=== PATIENT | female | born 1980 | race African-American/Black ===

== ENCOUNTER 2018-07-12 13:36 | Inpatient (IN) | payer OTHER ==
[2018-07-12 13:53] VITALS: BMI 23.4
[2018-07-12] MEDS ORDERED: Sodium Chloride 0.9% 1,000 ML IV ONE (14:13)
[2018-07-12 14:29] LABS: BASO % 0.2 % (0.0-2.0); EOS % 0.1 % (0.0-4.0); HEMOGLOBIN 9.4 g/dL (11.0-16.0); LYMPH # 1.2 K/uL (1.0-4.3); LYMPH % 9.6 % (20.0-40.0); MEAN CELL VOLUME 76.6 fL (81.0-99.0); MEAN CORPUSCULAR HGB CONC 32.6 g/dL (33.0-37.0); MEAN PLATELET VOLUME 7.5 fL (7.2-11.7); MONO # 0.7 K/uL (0.0-0.8); MONO % 5.5 % (0.0-10.0); NEUT # 10.6 K/uL (1.8-7.0); NEUT % 84.6 % (50.0-75.0); PLATELET COUNT 375 K/uL (130-400); RBC 3.77 Mil/uL (3.80-5.20); RED CELL DISTRIBUTION WIDTH 13.5 % (11.5-14.5); WHITE BLOOD COUNT 12.5 K/uL (4.8-10.8)
[2018-07-12 14:40] LABS: INR 1.2; PROTHROMBIN TIME 12.8 SECONDS (9.7-12.2)
[2018-07-12 14:46] LABS: ALB/GLOB RATIO 1.6 (1.0-2.1); ALBUMIN 4.4 g/dL (3.5-5.0); ALT/SGPT 11 U/L (9-52); AST/SGOT 20 U/L (14-36); BLOOD UREA NITROGEN 8 mg/dL (7-17); CALCIUM 9.2 mg/dl (8.6-10.4); GFR NON-AFRICAN AMERICAN > 60
--- NOTE | 2018-07-12 15:25 | CP.PCM.HP ---
<Francisco J Moses - Last Filed: 07/12/18 16:23> History of Present Illness - History of Present Illness History of Present Illness: Francisco J Moses, PGY-1 History and Physical for OBGYN Service Patient is a 37 female with past medical history of PCOS and DM at 8 weeks gestation who presents to the emergency department with complaints of lower left abdominal pain and right shoulder pain. She states that the pain began last night around 1 am and has been intermittent. She describes the lower left abdominal pain as throbbing/pressure like and the shoulder pain as sharp/stabbing in nature. She rates both currently to be at a 7-8/10. She indicates that she has experienced vaginal bleeding last night and this morning, approximately amounting to a handful of blood. She states that she went to her private gyncelogists Dr. Wheeler this morning where she states an ultrasound was done. She states that Dr. Wheeler indicated that there is no gestational sac in the uterus and that there is blood accumulation in the abdomen. Patient has been on Clomiphene for 8 years due to an inability to conceive, which patient states she stopped in 01/19. Patient endorses dizziness, dysuria, pain upon defecation, and mild shortness of breath with pain. Patient denies headache, blurry vision, chest pain, nausea, vomiting, leg pain, leg swelling. A full 12 point ROS was unremarkable unless otherwise stated above. Social Hx: Denies tabacco, alcohol, and illicit drug use. Medical Hx: PCOS (diagnosed in [place]), DM Allergies: NKA Surgical Hx: Denies Hosptilization: None recent Family Hx: Denies hx of Ca, ectopics Medicaitons: Metformin 500 mg PO BID Present on Admission - Present on Admission Any Indicators Present on Admission: No History of DVT/PE: No Urinary Catheter: No Decubitus Ulcer Present: No History Surgical Site Infection Following: None Review of Systems - Review of Systems Review of Systems: 12 point ROS completed and negative except as described in HPI. Past Patient History - Past Social History Smoking Status: Never Smoked - ENDOCRINE/METABOLIC Hx Diabetes Mellitus Type 2: Yes - GENITOURINARY/GYNECOLOGICAL Other/Comment: PCOS as per patient - PSYCHIATRIC Hx Substance Use: No - SURGICAL HISTORY Hx Surgeries: No - ANESTHESIA Hx Anesthesia: No Meds Allergies/Adverse Reactions: Allergies Allergy/AdvReac Type Severity Reaction Status Date / Time No Known Allergies Allergy Verified 07/12/18 13:53 Physical Exam - Constitutional Appears: Well, No Acute Distress - Head Exam Head Exam: ATRAUMATIC, NORMAL INSPECTION, NORMOCEPHALIC - Eye Exam Eye Exam: EOMI, Normal appearance. absent: Scleral icterus Pupil Exam: PERRL - ENT Exam ENT Exam: Mucous Membranes Moist - Neck Exam Neck exam: Positive for: Full Rom - Respiratory Exam Respiratory Exam: Decreased Breath Sounds, Clear to Auscultation Bilateral, NORMAL BREATHING PATTERN. absent: Accessory Muscle Use, Rales, Rhonchi, Wheezes - Cardiovascular Exam Cardiovascular Exam: Tachycardia, +S1, +S2 - GI/Abdominal Exam GI & Abdominal Exam: Diminished Bowel Sounds, Guarding, Soft, Tenderness (LLQ). absent: Distended, Firm, Pulsatile Mass, Rebound, Rigid - Extremities Exam Extremities exam: Negative for: pedal edema, tenderness Additional comments: R shoulder pain worse with movement - Back Exam Back exam: absent: CVA tenderness (L), CVA tenderness (R) - Neurological Exam Neurological exam: Alert, Oriented x3 - Psychiatric Exam Psychiatric exam: Anxious - Skin Skin Exam: Dry, Intact, Pallor (Noted on palms, no scleral icterus) Results - Vital Signs Recent Vital Signs: Last Vital Signs Temp 97.8 F 07/12/18 13:54 Pulse 139 H 07/12/18 13:54 Resp 20 07/12/18 13:54 BP 111/72 07/12/18 13:54 Pulse Ox 100 07/12/18 13:54 - Labs Result Diagrams: 07/12/18 14:21 07/12/18 14:21 Labs: Laboratory Results - last 24 hr 07/12/18 07/12/18 07/12/18 14:21 14:21 14:21 WBC 12.5 H RBC 3.77 L Hgb 9.4 L Hct 28.9 L MCV 76.6 L MCH 25.0 L MCHC 32.6 L RDW 13.5 Plt Count 375 MPV 7.5 Neut % (Auto) 84.6 H Lymph % (Auto) 9.6 L Meagher % (Auto) 5.5 Eos % (Auto) 0.1 Baso % (Auto) 0.2 Neut # (Auto) 10.6 H Lymph # (Auto) 1.2 Meagher # (Auto) 0.7 Eos # (Auto) 0.0 Baso # (Auto) 0.0 PT 12.8 H INR 1.2 APTT 28 Sodium 134 Potassium 4.4 Chloride 102 Carbon Dioxide 22 Anion Gap 15 BUN 8 Creatinine 0.4 L Est GFR ( Amer) > 60 Est GFR (Non-Af Amer) > 60 Random Glucose 163 H Calcium 9.2 Total Bilirubin 0.4 AST 20 ALT 11 Alkaline Phosphatase 52 Total Protein 7.1 Albumin 4.4 Globulin 2.8 Albumin/Globulin Ratio 1.6 Beta HCG, Quant 4196.90 Assessment & Plan - Assessment and Plan (Free Text) Assessment: 37 F with PMHx of DM and PCOS who presents with left lower abdominal pain, likely secondary to a ruptured ectopic . B-HCG was 4197, and bedside U/S performed at private OBGYN's office showed blood in the abdomen. - Hemodynamically stable, no obvious sign of active blood loss currently - EKG shows sinus tachycardia - Hgb 9.4 - F/u results of Transvaginal U/S - IVF - Type and Screen, Type and Cross - Possible surgical laparoscopy - Patient seen and discussed with Dr. Summers, per Dr. Wheeler's request Francisco J Moses, PGY-1 <Lexi Summers - Last Filed: 07/12/18 16:29> Results - Vital Signs Recent Vital Signs: Last Vital Signs Temp 98.6 F 07/12/18 16:17 Pulse 122 H 07/12/18 16:17 Resp 19 07/12/18 16:17 BP 112/70 07/12/18 16:17 Pulse Ox 100 07/12/18 16:17 - Labs Result Diagrams: 07/12/18 14:21 07/12/18 14:21 Labs: Laboratory Results - last 24 hr 07/12/18 07/12/18 07/12/18 14:21 14:21 14:21 WBC 12.5 H RBC 3.77 L Hgb 9.4 L Hct 28.9 L MCV 76.6 L MCH 25.0 L MCHC 32.6 L RDW 13.5 Plt Count 375 MPV 7.5 Neut % (Auto) 84.6 H Lymph % (Auto) 9.6 L Meagher % (Auto) 5.5 Eos % (Auto) 0.1 Baso % (Auto) 0.2 Neut # (Auto) 10.6 H Lymph # (Auto) 1.2 Meagher # (Auto) 0.7 Eos # (Auto) 0.0 Baso # (Auto) 0.0 Neutrophils % (Manual) 88 H Lymphocytes % (Manual) 9 L Monocytes % (Manual) 3 Platelet Estimate Normal Polychromasia Slight Hypochromasia (manual) Slight Microcytosis (manual) Slight PT 12.8 H INR 1.2 APTT 28 Sodium 134 Potassium 4.4 Chloride 102 Carbon Dioxide 22 Anion Gap 15 BUN 8 Creatinine 0.4 L Est GFR ( Amer) > 60 Est GFR (Non-Af Amer) > 60 Random Glucose 163 H Calcium 9.2 Total Bilirubin 0.4 AST 20 ALT 11 Alkaline Phosphatase 52 Total Protein 7.1 Albumin 4.4 Globulin 2.8 Albumin/Globulin Ratio 1.6 Beta HCG, Quant 4196.90 Blood Type Antibody Screen 07/12/18 14:21 WBC RBC Hgb Hct MCV MCH MCHC RDW Plt Count MPV Neut % (Auto) Lymph % (Auto) Meagher % (Auto) Eos % (Auto) Baso % (Auto) Neut # (Auto) Lymph # (Auto) Meagher # (Auto) Eos # (Auto) Baso # (Auto) Neutrophils % (Manual) Lymphocytes % (Manual) Monocytes % (Manual) Platelet Estimate Polychromasia Hypochromasia (manual) Microcytosis (manual) PT INR APTT Sodium Potassium Chloride Carbon Dioxide Anion Gap BUN Creatinine Est GFR ( Amer) Est GFR (Non-Af Amer) Random Glucose Calcium Total Bilirubin AST ALT Alkaline Phosphatase Total Protein Albumin Globulin Albumin/Globulin Ratio Beta HCG, Quant Blood Type A POSITIVE Antibody Screen Negative Assessment & Plan - Assessment and Plan (Free Text) Assessment: Agreed with Dr. Moses A/P after case reviewed with him TA and TV US reported as empty uterus, Hemoperitoneum and most likely c/w a left Ruptured ectopic Low H&H from acute blood loss/ Asymptomatic Blood type A+ Type and Cross for 2 Units was ordered and on hold Dr. Wheeler aware of above findings and request to bring patient to OR for Surgery Pt amd aware of dings and plan of care and verbalized understanding Will transfer to OR
[2018-07-12 15:36] LABS: LYMPHOCYTE 9 % (20-40); MONOCYTE 3 % (0-10); NEUTROPHIL 88 % (50-75); PLATELET ESTIMATE NORMAL (NORMAL); TOTAL CELLS COUNTED 100
[2018-07-12 15:37] LABS: HYPOCHROMIC SLIGHT; MICROCYTOSIS SLIGHT; POLYCHROMIC SLIGHT
--- NOTE | 2018-07-12 16:09 | US ---
Date of service: 07/12/2018 HISTORY: vaginal bleeding - r/o ectopic COMPARISON: None available. TECHNIQUE: Transabdominal and transvaginal pelvic ultrasound was performed. FINDINGS: UTERUS: Measures 10.8 x 6.2 x 6.9 cm. Anteverted enlarged. No fibroid or other mass lesion seen. ENDOMETRIUM: Measures 2.5 mm in diameter. There is small amount of fluid in the endometrial canal. CERVIX: No cervical abnormality identified. RIGHT OVARY: Measures 2.5 x 1.5 x 2.0 cm. No solid mass. Normal flow. LEFT OVARY: Measures 4.3 x 3.1 x 3.9 cm. There is a 5.9 x 5.7 x 6.6 cm heterogeneous mixed echogenicity mass in the left adnexa. There is no significant increased peripheral vascularity normal flow. There is a 2.7 x 2.5 x 2.1 cm simple cyst. FREE FLUID: There is large amount of hemorrhagic fluid in the pelvis. OTHER FINDINGS: None. IMPRESSION: 1. No evidence of intrauterine gestational sac. 2. Approximately 5.9 x 5.7 x 6.6 cm heterogeneous mass in the left adnexa and large amount of hemorrhagic fluid in the pelvis concerning for a joint ectopic . Critical findings were discussed with Dr. Matthew Chadwick in the ER on 07/12/2018 at 4:04 p.m.
[2018-07-12] MEDS ORDERED: Midazolam 2 MG/2 ML VIAL ONE (16:36)
[2018-07-12] MEDS ORDERED: Propofol 10 mg/ml Inj (20 ML) ONE (16:37)
[2018-07-12] MEDS ORDERED: Rocuronium 10 mg/ml (5 ml) ONE (16:41)
[2018-07-12] MEDS ORDERED: ceFOXitin IV 1 gm/100 ml in NS 2 GM/200 ML BAG ONE (17:03)
[2018-07-12] MEDS ORDERED: Lactated Ringer's 1,000 ML IV SCH (18:00)
[2018-07-12] MEDS: HYDROmorphone 0.5 mg/0.5 ml ISec IVP PRN ×3 (18:04→19:31)
--- NOTE | 2018-07-12 18:05 | PCM.SURG1 ---
Surgeon's Initial Post Op Note - Surgeon's Notes Surgeon: Dr. Halley Wheeler Wire Wheeler: Dr. Karthikeyan Lebron Type of Anesthesia: General IV Anesthesia Administered By: Dr. Rizzo Pre-Operative Diagnosis: Left Rupture Ectopic with large Hemoperitoneum Operative Findings: about 1000 mls of Hemoperitoneum. Left tubal ectopic ruptured Post-Operative Diagnosis: Same as preop Diagnosis. Small Left simple ovarian cyst Operation Performed: Exploratoty Laparotomy. Left Partial Salpingectomy. Evacuation of Large Hemoperitoneum Specimen/Specimens Removed: 1000 mls of blood clots from abdomen. Partial ruptured left Fallopian Tube Estimated Blood Loss: EBL {In ML}: 100 (1000 mls of peritoneal clotted blood ) Blood Products Given: N/A (I was requested to assist in closing the abdomen at the end of the case when Dr. Wheeler was called for another emergency), PRBC Drains Used: No Drains Post-Op Condition: Good Date of Surgery/Procedure: 07/12/18 Time of Surgery/Procedure: 16:45
--- NOTE | 2018-07-12 19:56 | C.PDOC ---
History Of Present Illness 37-year-old female presents to the ED, sent in by Dr. Wheeler for left pelvic pain, rule out ectopic . Patient reports vaginal bleeding since last night, associated with abdominal pain. Also associated with nausea but no vomiting. Pain is localized to the left lower quadrant. No fevers, chills, or changes in bowel movements. Time Seen by Provider: 07/12/18 13:58 Chief Complaint (Nursing): Abdominal Pain History Per: Patient History/Exam Limitations: no limitations Onset/Duration Of Symptoms: Days (x 1) Current Symptoms Are (Timing): Still Present Associated Symptoms: Nausea Abnormal Vaginal Bleeding: Yes : 1 Para: 0 Past Medical History Reviewed: Historical Data, Nursing Documentation, Vital Signs Vital Signs: Last Vital Signs Temp 97.8 F 07/12/18 17:35 Pulse 101 H 07/12/18 19:30 Resp 16 07/12/18 19:30 BP 113/57 L 07/12/18 19:30 Pulse Ox 100 07/12/18 19:30 Surgical History: No Surg Hx Family History: States: Unknown Family Hx - Social History Hx Alcohol Use: No Hx Substance Use: No - Immunization History Hx Tetanus Toxoid Vaccination: No Hx Influenza Vaccination: No Hx Pneumococcal Vaccination: No Review Of Systems Except As Marked, All Systems Reviewed And Found Negative. Constitutional: Negative for: Fever, Chills Cardiovascular: Negative for: Palpitations Respiratory: Negative for: Shortness of Breath Gastrointestinal: Positive for: Nausea, Abdominal Pain. Negative for: Vomiting, Diarrhea, Hematochezia Genitourinary: Positive for: Vaginal Bleeding, Pelvic Pain. Negative for: Dysuria, Frequency Skin: Negative for: Rash Neurological: Negative for: Dizziness Physical Exam - Physical Exam Appears: Non-toxic, In Acute Distress (In mild to moderate distress) Skin: Warm, Dry Head: Atraumatic, Normacephalic Eye(s): bilateral: Normal Inspection, PERRL, EOMI Neck: Normal ROM Chest: Symmetrical Cardiovascular: Rhythm Regular, No Murmur Respiratory: Normal Breath Sounds, No Rales, No Rhonchi, No Wheezing Gastrointestinal/Abdominal: Soft, Tenderness (Suprapubic and LLQ tenderness), No Guarding, No Rebound Back: No CVA Tenderness Extremity: Bilateral: Atraumatic, Normal ROM Pulses: Left Dorsalis Pedis: Normal, Right Dorsalis Pedis: Normal Neurological/Psych: Oriented x3 Gait: Steady ED Course And Treatment - Laboratory Results Result Diagrams: 07/12/18 22:35 07/12/18 14:21 Lab Results: PT 12.8 SECONDS (9.7-12.2) H 07/12/18 14:21 INR 1.2 07/12/18 14:21 APTT 28 SECONDS (21-34) 07/12/18 14:21 Total Bilirubin 0.4 mg/dL (0.2-1.3) 07/12/18 14:21 AST 20 U/L (14-36) 07/12/18 14:21 ALT 11 U/L (9-52) 07/12/18 14:21 Alkaline Phosphatase 52 U/L (38-126) 07/12/18 14:21 Total Protein 7.1 g/dL (6.3-8.3) 07/12/18 14:21 Albumin 4.4 g/dL (3.5-5.0) 07/12/18 14:21 Globulin 2.8 gm/dL (2.2-3.9) 07/12/18 14:21 Albumin/Globulin Ratio 1.6 (1.0-2.1) 07/12/18 14:21 Beta HCG, Quant 4196.90 mIU/ML 07/12/18 14:21 O2 Sat by Pulse Oximetry: 100 (RA) Pulse Ox Interpretation: Normal Medical Decision Making Medical Decision Making: Initial Plan: - Blood type/screen - CMP - Beta-HCG quant - CBC - PTT/PT - IV fluids - Pending Pelvic/Transvag US Spoke with Dr. Summers, reviewed labs and US which show ruptured ectopic. Patient to be taken to the OR from the ED. Disposition Counseled Patient/Family Regarding: Studies Performed, Diagnosis - Disposition Disposition: HOSPITALIZED Disposition Time: 14:08 Condition: SERIOUS - POA Present On Arrival: None - Clinical Impression Clinical Impression: Ruptured ectopic - Scribe Statement The provider has reviewed the documentation as recorded by the [place] Provider Attestation: All medical record entries made by the Jennyferibe were at my direction and personally dictated by me. I have reviewed the chart and agree that the record accurately reflects my personal performance of the history, physical exam, medical decision making, and the department course for this patient. I have also personally directed, reviewed, and agree with the discharge instructions and disposition.
[2018-07-12] MEDS: Oxycodone/Acetaminophen 5/325 mg Tab PO PRN (22:12)
[2018-07-12 22:40] LABS: BASO % 0.4 % (0.0-2.0); EOS % 0.1 % (0.0-4.0); LYMPH # 1.6 K/uL (1.0-4.3); LYMPH % 22.5 % (20.0-40.0); MEAN CORPUSCULAR HEMOGLOBIN 26.6 pg (27.0-31.0); MEAN CORPUSCULAR HGB CONC 33.6 g/dL (33.0-37.0); MEAN PLATELET VOLUME 7.4 fL (7.2-11.7); MONO # 0.6 K/uL (0.0-0.8); MONO % 8.1 % (0.0-10.0); NEUT # 4.8 K/uL (1.8-7.0); NEUT % 68.9 % (50.0-75.0); RBC 3.39 Mil/uL (3.80-5.20); RED CELL DISTRIBUTION WIDTH 16.2 % (11.5-14.5); WHITE BLOOD COUNT 6.9 K/uL (4.8-10.8)
[2018-07-12 22:41] LABS: MEAN CELL VOLUME 79.1 fL (81.0-99.0)
[2018-07-13] MEDS: Oxycodone/Acetaminophen 5/325 mg Tab PO PRN ×4 (06:55→21:06)
[2018-07-13 08:10] LABS: HEMOGLOBIN 8.9 g/dL (11.0-16.0); MEAN CELL VOLUME 78.8 fL (81.0-99.0); MEAN CORPUSCULAR HEMOGLOBIN 27.2 pg (27.0-31.0); MEAN CORPUSCULAR HGB CONC 34.5 g/dL (33.0-37.0); MEAN PLATELET VOLUME 7.9 fL (7.2-11.7); RBC 3.27 Mil/uL (3.80-5.20); RED CELL DISTRIBUTION WIDTH 15.6 % (11.5-14.5); WHITE BLOOD COUNT 5.1 K/uL (4.8-10.8)
[2018-07-13 08:13] LABS: HEMOGLOBIN 9.1 g/dL (11.0-16.0)
--- NOTE | 2018-07-13 12:09 | CP.PCM.PN ---
Subjective - Date & Time of Evaluation Date of Evaluation: 07/13/18 Time of Evaluation: 12:06 - Subjective Subjective: Patient is s/p Laparatomy for a hemopertoneum and ruptured ectopic gestation. POD #1, Clinically Stable. Reports adequate pain control and is tolerating po. Has not passed gas. Otherwise well Objective - Vital Signs/Intake and Output Vital Signs (last 24 hours): Temp Pulse Resp BP Pulse Ox 99.4 F 104 H 18 99/57 L 97 07/13/18 08:00 07/13/18 08:00 07/13/18 08:00 07/13/18 08:00 07/13/18 08:00 Intake and Output: 07/13/18 07/13/18 06:59 18:59 Intake Total 1250 Output Total 1350 Balance -100 - Medications Medications: Current Medications Hydromorphone HCl (Dilaudid) 0.5 mg IVP Q10M PRN PRN Reason: Pain, moderate (4-7) Last Admin: 07/12/18 19:31 Dose: 0.5 mg Lactated Ringer's (Lactated Ringer's) 1,000 mls @ 125 mls/hr IV .Q8H OSMEL Metformin HCl (Glucophage) 500 mg PO BIDCC OSMEL Ondansetron HCl (Zofran Inj) 4 mg IVP ONCE PRN PRN Reason: Nausea/Vomiting Last Admin: 07/12/18 19:22 Dose: 4 mg Oxycodone/Acetaminophen (Percocet 5/325 Mg Tab) 1 tab PO Q4 PRN PRN Reason: Pain, moderate (4-7) Stop: 07/15/18 17:55 Last Admin: 07/13/18 11:27 Dose: 1 tab - Labs Labs: 07/13/18 08:00 07/12/18 14:21 PT 12.8 SECONDS (9.7-12.2) H 07/12/18 14:21 INR 1.2 07/12/18 14:21 APTT 28 SECONDS (21-34) 07/12/18 14:21 - Constitutional Appears: Well - Respiratory Exam Respiratory Exam: Clear to Ausculation Bilateral, NORMAL BREATHING PATTERN - Cardiovascular Exam Cardiovascular Exam: REGULAR RHYTHM - GI/Abdominal Exam GI & Abdominal Exam: Normal Bowel Sounds Additional comments: Incision: Clean and dry - Extremities Exam Extremities Exam: Normal Inspection Assessment and Plan (1) Status post laparotomy Status: Acute (2) H/O unilateral salpingectomy Status: Acute - Assessment and Plan (Free Text) Plan: Plan: Advance po as tolerated to regular diet. D/c folleys catheter Switch to po pain medications Encourage ambulation. Monitor vital signs
[2018-07-14 00:45] VITALS: TEMP 98.4
[2018-07-14] MEDS: Oxycodone/Acetaminophen 5/325 mg Tab PO PRN ×2 (01:04→07:59)
[2018-07-14 08:13] VITALS: BP 99/64; PULSE 104; RESP 20
[2018-07-14 08:26] VITALS: O2SAT 99
[2018-07-14 08:57] LABS: BASO % 0.4 % (0.0-2.0); EOS % 0.7 % (0.0-4.0); HEMOGLOBIN 9.1 g/dL (11.0-16.0); LYMPH # 1.1 K/uL (1.0-4.3); LYMPH % 16.5 % (20.0-40.0); MEAN CELL VOLUME 79.8 fL (81.0-99.0); MEAN CORPUSCULAR HEMOGLOBIN 27.2 pg (27.0-31.0); MEAN CORPUSCULAR HGB CONC 34.2 g/dL (33.0-37.0); MEAN PLATELET VOLUME 7.8 fL (7.2-11.7); MONO # 0.4 K/uL (0.0-0.8); MONO % 5.8 % (0.0-10.0); NEUT # 5.3 K/uL (1.8-7.0); NEUT % 76.6 % (50.0-75.0); RBC 3.35 Mil/uL (3.80-5.20); RED CELL DISTRIBUTION WIDTH 15.6 % (11.5-14.5)
--- NOTE | 2018-07-19 12:34 | OP ---
PROCEDURE DATE: 07/12/2018 SURGEON: Toribio Wheeler MD. CAN LINE EXAMINER: Ralph Lebron MD. ANESTHESIA: General. ANESTHESIOLOGIST: Stoney Jimenez DO. SURGERY PERFORMED: Exploratory laparotomy, left salpingectomy and evacuation hemoperitoneum. ESTIMATED BLOOD LOSS: A liter of hemoperitoneum in the belly and 200 mL of EBL. COMPLICATIONS: None. DESCRIPTION OF PROCEDURE: After informed consent was obtained, the patient was brought to the operating room and placed on the table where general anesthesia was given. Once anesthesia was given, the patient was prepped and draped in normal sterile fashion. After that, a Lerner catheter was inserted under sterile condition. About 2 cm above the pubic bone, a skin incision was made with a knife and subcutaneous was cut with the Bovie. The fascia was excised on both the sides using curved Hammond scissors. Fascia was on both the sides. Fascia was extended using Bovie and curved Hammond scissors. Rectus muscle was and peritoneum was excised. We saw lot of hemoperitoneum coming out. All the suction was done. Then the wet lap was placed for the bowel after lot of irrigation was done and all the blood clot was suctioned out. After that, was visualized on the left side of the tube. Then the ectopic was ruptured. Two dialysis was used to lift the tube, and after that, two Kellys were placed on the tube. After that, the LigaSure was used to do the left salpingectomy, it was done. The LigaSure was hemostatic, nonbleeding, and the ovary on the left side looks normal. The tube on the right and the left side looks normal. Lot of irrigation was done. It was hemostatic. There was no more bleeding. All the clots were taken out. All the laps were removed. After that, FloSeal was placed at the site of the salpingectomy. After that, peritoneum was closed using 2-0 Vicryl in running interlocking fashion. Muscle was closed using 2-0 Vicryl in running interlocking fashion. Fascia was closed using #1 Vicryl in running interlocking fashion. Skin was closed using 3-0 Monocryl on straight needle. The patient tolerated the procedure well. Lap, sponge, and instrument counts were correct x2. Toribio Wheeler MD [facility] # [id number]
--- NOTE | 2018-07-21 18:14 | CARD ---
APPROVED REPORT Date of service: 07/12/2018 EKG Measurement Heart [id number] <Conclusion> Sinus tachycardia Rightward axis Borderline ECG
== END 2018-07-14 14:29 | disposition home or self-care (01) | DRG 817 ==
LOC: C.ER 13:36 → C.4M 13:36 → C.SDS 14:34 → C.4M 17:52
PROVIDERS: ADMIT Obstetrics & Gynecology; ATTEND Obstetrics & Gynecology
PROC: 0W9G0ZZ Drainage of Peritoneal Cavity, Open Approach (ICD-10-PCS; 2018-07-12)
PROC: 10T20ZZ Resection of Products of Conception, Ectopic, Open Approach (ICD-10-PCS; 2018-07-12)
PROC: 0UT60ZZ Resection of Left Fallopian Tube, Open Approach (ICD-10-PCS; principal; 2018-07-12 18:00)
DX: O00.102 Left tubal pregnancy without intrauterine pregnancy (principal); K66.1 Hemoperitoneum; E28.2 Polycystic ovarian syndrome; E11.9 Type 2 diabetes mellitus without complications